=== PATIENT | female | born 1940 | race Caucasian/White ===

== ENCOUNTER 2018-01-06 15:29 | Inpatient (IN) | payer MEDICARE ==
[~2018-01-06] VITALS: Ht 152.4 cm; Wt 40.8 kg
--- NOTE | ~2018-01-06 | HP ---
PATIENT: ARTUR REES MEDICAL RECORD: [id number] ACCOUNT: [id number] LOCATION:[facility] : 41 ADMISSION DATE: 01/07/18 HISTORY AND PHYSICAL EXAMINATION HISTORY OF PRESENT ILLNESS: A 77-year-old female admitted to the Emergency Room unassigned medicine after a fall at home. Findings on x-rays and exam revealed displaced left humerus fracture. She also had a contusion to her head. No evidence of intracranial bleed. No evidence of stroke. No focal deficits. The patient lives at home. She has had frequent falls, evidence of subacute rib fracture on x-ray as well. PAST MEDICAL HISTORY: Significant for COPD. ALLERGIES: REPORTED MORPHINE AND CODEINE. CURRENT MEDICATIONS: Inhalers, supplements. REVIEW OF SYSTEMS: GENERAL: No reported change in weight or appetite. HEENT: She denies headache, but she did have a recent contusion to her head with the present fall. Denies visual changes, tinnitus, epistaxis, or dysphagia. CARDIOVASCULAR: Denies chest pain. Denies palpitations. PULMONARY: Denies hemoptysis. Denies night sweats. GASTROINTESTINAL: Denies hematemesis, hematochezia, or melena. GENITOURINARY: Admits frequency. Denies burning. MUSCULOSKELETAL: Frequent falls with a displaced left humerus fracture. PHYSICAL EXAMINATION: VITAL SIGNS: Temperature 98.1, blood pressure 154/82, heart rate 79, respirations 18, O2 sats 94%. GENERAL: Alert, oriented, presently comfortable. HEENT: Head: No cephalgia. Small hematoma on scalp. Eyes: Equally round and reactive. Ears: Canals patent. Nose: Nares patent. Throat: No erythema, no exudates. NECK: Supple. No lymphadenopathy. No JVD. No carotid bruits. HEART: Regular rate and rhythm. No S3 or S4. No rub. LUNGS: Clear to auscultation bilaterally. Mildly prolonged expiratory phase. Breathing is nonlabored. ABDOMEN: Soft, nontender. Bowel sounds all 4 quadrants. EXTREMITIES: Present times 4. Deformity, left proximal humerus. Pulses palpable. RADIOLOGIC DATA: X-ray humerus 2 views: Fracture of the proximal humerus, left and what appears to be subacute left rib fracture. Chest x-ray: No acute findings. CT of the head: Signs of small vessel disease. Left frontal scalp hematoma. No acute intracranial abnormality. LABORATORY DATA: Urinalysis: Yellow, turbid, small ketones, 1+ blood, positive for nitrites, 2+ leukocyte esterase, greater than 50 wbc's per high-powered field, many bacteria. CBC: White count 9.6, hemoglobin 12.6, hematocrit 37.2, platelets 137. PT is 12.2, INR is 0.94. Sodium 141, potassium 3.9, BUN 10, creatinine 0.6. HISTORY AND PHYSICAL [id number] ARTUR REES ASSESSMENT AND PLAN: 1. Left humerus fracture. Orthopedics consulted. Anticipated surgery soon for open reduction internal fixation. 2. Urinary tract infection. Rocephin 1 gram daily. Urine culture. 3. Chronic obstructive pulmonary disease. DuoNebs four times a day, supplemental oxygen, supportive care. 4. Frequent falls. Will need physical therapy evaluation after surgery. We will obtain EKG. Consider neurology evaluation through her primary care physician, Dr. Irene upon discharge. TRANSINT:[id number] Voice Confirmation ID: [id number] DOCUMENT ID: [id number] JEFF BROOKS DO at 0819 CC: [id number] DICTATION DATE: 01/07/18 0733 PIZZA DELIVERY: 01/07/18 0839 ADM IN [place] [id number] [place] [address]
--- NOTE | ~2018-01-06 | OP ---
PATIENT NAME: ARTUR REES MEDICAL RECORD: [id number] :42 LOCATION:[facility] ADMISSION DATE:01/07/18 SURGEON: KURTIS KUMAR MD DATE OF OPERATION: 01/08/2018 PREOPERATIVE DIAGNOSIS: Left proximal humerus fracture. POSTOPERATIVE DIAGNOSIS: Left proximal humerus fracture. PROCEDURE: Open reduction and internal fixation of left proximal humerus fracture. SURGEON: Kurtis Kumar MD ANESTHESIA: General. INTRAOPERATIVE COMPLICATIONS: Essentially none. SUMMARY OF PATHOLOGIC FINDINGS: The patient had an oblique fracture just below the humeral head. The patient had a prior proximal humerus fracture with severe varus healing making this a little more difficult than usual. OPERATIVE SUMMARY IN DETAIL: After obtaining the appropriate preoperative orthopedic surgery consent as well as anesthetic consultation, evaluation and clearance, the patient was brought to the operating room and placed on the operating table in supine position. After general laryngeal mask was administered, the patient was placed in the beach chair position. All pressure points were well padded. She was held firmly to the operating table using the vacuum pack suction system. The patient's left upper extremity and shoulder were then prepped and draped in a routine sterile fashion. The arm was held in the Trimano arm holding device. It is of note that preoperatively, this patient had multiple skin tears from her fall and sustained one single additional skin tear intraoperatively. The skin tears were treated usually and prepped around this per protocol. At this point, a deltopectoral incision was taken down to the cephalic vein, which was found to remained intact, it was protected through the entire case. Dissection was carried down, the anterior aspect just lateral to the biceps, the biceps had previously torn, the distal aspect was found to be frayed, dissection was carried down, a small portion of the deltoid was released as well as a small portion of the pectoralis major as it had binded between the fracture fragments. This was all removed along with all fracture hematoma. Fracture reduction was performed, held in place with bone clamps while the [employer] plating system was used. Serial and sequential drill and fill was done with a combination of both locking and nonlocking screws under direct fluoroscopic visualization. Having completed this, the pectoralis was repaired using #2 Ethibond. Wound was then copiously irrigated and closed with #1 Vicryl followed by 2-0 Vicryl followed by skin erick. Sterile dressings were applied. The patient was awakened, taken to recovery room in stable condition. Estimated blood loss was approximately 200 cc and again intraoperative plating system was the AxSOS 5-hole humeral plate. TRANSINT:[id number] Voice Confirmation ID: [id number] DOCUMENT ID: [id number] OPERATIVE REPORT [id number] ARTUR REES MD, KURTIS BLANCHARD at 1427 CC: [id number] DICTATION DATE: 01/08/18 1143 PRODUCT SAFETY TESTER: 01/08/18 1217 ADM IN [place] [id number] [place] [id number]
[2018-01-06 17:04] LABS: BASOPHILS 0.2 % (0-2); EOSINOPHILS 0.2 % (0-7); HEMATOCRIT 37.2 % (36.0-48.0); HEMOGLOBIN 12.6 g/dL (12-16); IMMATURE GRANULOCYTES 0.3 % (0-5); LYMPHOCYTES 10.8 % (15-50); MCH 34.9 pg (26.0-34.0); MCHC 33.9 g/dL (31.0-37.0); MEAN PLATELET VOLUME 9.6 fL (7.4-10.4); MONOCYTES 11.7 % (2-11); NEUTROPHILS 76.8 % (40-80); PLATELET COUNT 137 10x3/uL (130-400); RBC 3.61 10x6/uL (4.00-5.40); RDW 13.5 % (11.5-14.5); WBC 9.6 10x3/uL (4.8-10.8)
[2018-01-06 17:12] LABS: APTT 23.5 SECONDS (22.8-39.4); INR 0.94 (0.85-1.17); PROTIME 12.2 SECONDS (11.6-15.0)
[2018-01-06 17:17] LABS: ALBUMIN 3.3 g/dL (3.4-5.0); ALKALINE PHOSPHATASE 96 U/L (46-116); ALT (SGPT) 20 U/L (10-68); CALC OSMOLALITY 279 mosm/kg (275-300); CALCIUM 8.7 mg/dL (8.5-10.1); CARBON DIOXIDE 29.9 mmol/L (21.0-32.0); CHLORIDE - SERUM 101 mmol/L (98-107); CREATININE - SERUM 0.6 mg/dL (0.6-1.3); GLUCOSE 94 mg/dL (74-106); POTASSIUM - SERUM 3.9 mmol/L (3.5-5.1); SODIUM 141 mmol/L (136-145); UREA NITROGEN 10 mg/dL (7-18); eGFR NON AFRICAN AMERICAN > 90 mL/min (90-120)
[2018-01-06 20:11] LABS: APPEARANCE TURBID (CLEAR); BILIRUBIN NEGATIVE (NEGATIVE); COLOR YELLOW (YELLOW); GLUCOSE NEGATIVE (NEGATIVE); KETONE SMALL mg/dL (NEGATIVE); NITRITE POSITIVE (NEGATIVE); PROTEIN TRACE mg/dL (NEGATIVE); SPECIFIC GRAVITY 1.015 (1.005-1.020); UROBILINOGEN NORMAL (NORMAL)
[2018-01-06 20:13] LABS: RED CELLS - URINE 0-5 /hpf (0-5); WHITE CELLS - URINE >50 /hpf (0-5)
[2018-01-06 20:14] LABS: BACTERIA MANY /hpf (NONE SEEN)
[2018-01-06] MEDS ORDERED: SPIRIVA RESPIMAT4 G1 INH (22:01)
[2018-01-06] MEDS ORDERED: MUCINEX DM ER1 EAC1 PO (22:02)
[2018-01-06] MEDS ORDERED: CALCIUM 250+D T1 TAB PO (22:04)
[2018-01-06] MEDS ORDERED: CETIRIZINE HCL5 MG PO (22:04)
[2018-01-06] MEDS ORDERED: GLUCOSAMINE & C1 CAP PO (22:05)
[2018-01-06] MEDS ORDERED: SYMBICORT 16010.2 GM INH (22:07)
[2018-01-06] MEDS ORDERED: VENTOLIN HFA18 GM INH (22:08)
[2018-01-06] MEDS ORDERED: PROVENTIL/2.5 MG/3 M INH (22:10)
[2018-01-06] MEDS ORDERED: SINGULAIR10 MG PO (22:11)
[2018-01-06] MEDS ORDERED: GINKGO BILOBA120 MG PO (22:11)
[2018-01-06] MEDS ORDERED: NASONEX NASAL S17 GM NS (22:11)
[2018-01-06 22:38] VITALS: BP 149/83; BMI 17.6
[2018-01-06 23:10] VITALS: BP 149/83
[2018-01-07 02:43] VITALS: BP 158/83
[2018-01-07 05:13] VITALS: BP 154/82
[2018-01-07 10:02] VITALS: BP 173/82
[2018-01-07 12:39] VITALS: BP 146/77
[2018-01-07 14:23] VITALS: Ht 152.4 cm; Wt 40.8 kg
[2018-01-07 16:30] VITALS: BP 152/77
[2018-01-07 22:06] VITALS: BP 124/68
[2018-01-08 04:40] LABS: BASOPHILS 0.2 % (0-2); EOSINOPHILS 0.6 % (0-7); HEMATOCRIT 34.9 % (36.0-48.0); HEMOGLOBIN 11.7 g/dL (12-16); IMMATURE GRANULOCYTES 0.3 % (0-5); LYMPHOCYTES 10.9 % (15-50); MCH 34.4 pg (26.0-34.0); MCHC 33.5 g/dL (31.0-37.0); MCV 102.6 fL (80.0-100.0); MEAN PLATELET VOLUME 10.1 fL (7.4-10.4); MONOCYTES 12.4 % (2-11); NEUTROPHILS 75.6 % (40-80); PLATELET COUNT 144 10x3/uL (130-400); RDW 13.4 % (11.5-14.5); WBC 8.9 10x3/uL (4.8-10.8)
[2018-01-08 04:58] LABS: CALC OSMOLALITY 278 mosm/kg (275-300); CALCIUM 8.9 mg/dL (8.5-10.1); CHLORIDE - SERUM 99 mmol/L (98-107); CREATININE - SERUM 0.7 mg/dL (0.6-1.3); GLUCOSE 113 mg/dL (74-106); MAGNESIUM - SERUM 1.6 mg/dL (1.8-2.4); POTASSIUM - SERUM 3.4 mmol/L (3.5-5.1); SODIUM 139 mmol/L (136-145); eGFR NON AFRICAN AMERICAN 86 mL/min (90-120)
[2018-01-08 05:01] LABS: UREA NITROGEN 13 mg/dL (7-18)
[2018-01-08 05:40] VITALS: BP 133/94
[2018-01-08 08:21] VITALS: BP 117/76
[2018-01-08 12:14] VITALS: BP 115/80
[2018-01-08 16:59] LABS: HEMATOCRIT 31.6 % (36.0-48.0); HEMOGLOBIN 10.4 g/dL (12-16)
[2018-01-08 20:30] VITALS: BP 114/72
[2018-01-09 00:30] VITALS: BP 112/76
[2018-01-09 03:37] LABS: BASOPHILS 0.2 % (0-2); EOSINOPHILS 0.4 % (0-7); HEMATOCRIT 29.4 % (36.0-48.0); HEMOGLOBIN 9.6 g/dL (12-16); IMMATURE GRANULOCYTES 0.4 % (0-5); LYMPHOCYTES 8.4 % (15-50); MCHC 32.7 g/dL (31.0-37.0); MCV 104.3 fL (80.0-100.0); MEAN PLATELET VOLUME 10.4 fL (7.4-10.4); MONOCYTES 16.9 % (2-11); NEUTROPHILS 73.7 % (40-80); PLATELET COUNT 124 10x3/uL (130-400); RBC 2.82 10x6/uL (4.00-5.40); RDW 13.5 % (11.5-14.5); WBC 10.7 10x3/uL (4.8-10.8)
[2018-01-09 04:11] LABS: ALBUMIN 2.8 g/dL (3.4-5.0); ANION GAP 10.1 mmol/L (8-16); BILIRUBIN - TOTAL 0.36 mg/dL (0.2-1.3); CALCIUM 8.5 mg/dL (8.5-10.1); CARBON DIOXIDE 31.7 mmol/L (21.0-32.0); POTASSIUM - SERUM 4.8 mmol/L (3.5-5.1); PROTEIN - SERUM 5.7 g/dL (6.4-8.2)
[2018-01-09 04:12] LABS: CREATININE - SERUM 1.1 mg/dL (0.6-1.3)
[2018-01-09 04:30] VITALS: BP 110/69
[2018-01-09 09:14] VITALS: BP 100/68
[2018-01-09 12:23] VITALS: BP 127/71
[2018-01-09 15:33] LABS: HEMATOCRIT 22.6 % (36.0-48.0); HEMOGLOBIN 7.6 g/dL (12-16)
[2018-01-09 16:11] VITALS: BP 120/68
[2018-01-09 20:00] VITALS: BP 132/72
[2018-01-10] VITALS (13 sets, daily range): BP systolic 107–135; BP diastolic 57–81
[2018-01-10 04:00] LABS: HEMATOCRIT 21.3 % (36.0-48.0)
[2018-01-10 04:02] LABS: HEMOGLOBIN 7.1 g/dL (12-16)
[2018-01-10 12:13] LABS: BASOPHILS 0.2 % (0-2); EOSINOPHILS 0.5 % (0-7); IMMATURE GRANULOCYTES 0.7 % (0-5); LYMPHOCYTES 5.4 % (15-50); MCH 33.1 pg (26.0-34.0); MEAN PLATELET VOLUME 9.5 fL (7.4-10.4); MONOCYTES 18.5 % (2-11); NEUTROPHILS 74.7 % (40-80); PLATELET COUNT 135 10x3/uL (130-400); RBC 2.72 10x6/uL (4.00-5.40); RDW 16.4 % (11.5-14.5)
[2018-01-10 12:37] LABS: HEMATOCRIT 26.5 % (36.0-48.0); MCV 97.4 fL (80.0-100.0)
[2018-01-11 04:55] VITALS: BP 128/69
[2018-01-11 06:29] LABS: BASOPHILS 0.2 % (0-2); EOSINOPHILS 2.3 % (0-7); HEMATOCRIT 26.3 % (36.0-48.0); HEMOGLOBIN 8.8 g/dL (12-16); IMMATURE GRANULOCYTES 0.6 % (0-5); LYMPHOCYTES 9.4 % (15-50); MCH 32.7 pg (26.0-34.0); MCHC 33.5 g/dL (31.0-37.0); MCV 97.8 fL (80.0-100.0); MEAN PLATELET VOLUME 9.2 fL (7.4-10.4); MONOCYTES 21.2 % (2-11); NEUTROPHILS 66.3 % (40-80); RBC 2.69 10x6/uL (4.00-5.40)
[2018-01-11 06:31] LABS: PLATELET COUNT 167 10x3/uL (130-400); WBC 9.6 10x3/uL (4.8-10.8)
[2018-01-11 06:52] LABS: CALC OSMOLALITY 271 mosm/kg (275-300); CALCIUM 8.4 mg/dL (8.5-10.1); CARBON DIOXIDE 32.2 mmol/L (21.0-32.0); CHLORIDE - SERUM 99 mmol/L (98-107); CREATININE - SERUM 0.7 mg/dL (0.6-1.3); POTASSIUM - SERUM 3.6 mmol/L (3.5-5.1); SODIUM 137 mmol/L (136-145); UREA NITROGEN 10 mg/dL (7-18); eGFR NON AFRICAN AMERICAN 86 mL/min (90-120)
[2018-01-11 06:57] LABS: GLUCOSE 83 mg/dL (74-106)
[2018-01-11 07:34] VITALS: BP 120/60
[2018-01-11] MEDS ORDERED: CIPRO500 MG PO (08:14)
[2018-01-11] MEDS ORDERED: PERCOCET 5-3251 TAB PO (08:45)
== END 2018-01-11 12:28 | disposition home health service (06) | DRG 493 ==
LOC: D.ER 15:29 → OBSVTIME 17:54 → D.SDCHOLD 17:54 → D.MS 17:54 → D.SDCHOLD 17:54 → D.MS 20:25
PROVIDERS: Family Medicine; Orthopaedic Surgery; Physician Assistant Medical
PROC: 0PSD04Z Reposition Left Humeral Head with Internal Fixation Device, Open Approach (ICD-10-PCS; principal; 2018-01-08 09:15)
DX: S42.202A Unspecified fracture of upper end of left humerus, initial encounter for closed fracture (principal); S22.32XA Fracture of one rib, left side, initial encounter for closed fracture; N39.0 Urinary tract infection, site not specified; D62 Acute posthemorrhagic anemia; W01.0XXA Fall on same level from slipping, tripping and stumbling without subsequent striking against object, initial encounter; S00.93XA Contusion of unspecified part of head, initial encounter; J44.9 Chronic obstructive pulmonary disease, unspecified; B96.4 Proteus (mirabilis) (morganii) as the cause of diseases classified elsewhere; F17.200 Nicotine dependence, unspecified, uncomplicated

== ENCOUNTER 2018-01-21 14:02 | Inpatient (IN) | payer MEDICARE ==
[~2018-01-21] VITALS: Ht 147.3 cm; Wt 40.4 kg
--- NOTE | ~2018-01-21 | OP ---
PATIENT NAME: ARTUR REES MEDICAL RECORD: [id number] :42 LOCATION:[facility] ADMISSION DATE:01/21/18 SURGEON: KURTIS KUMAR MD DATE OF OPERATION: 01/26/2018 PREOPERATIVE DIAGNOSIS: Failed open reduction internal fixation of the left humerus. POSTOPERATIVE DIAGNOSIS: Failed open reduction internal fixation of the left humerus. PROCEDURES: 1. Removal of previously placed hardware. 2. Convert to complex reverse total shoulder arthroplasty. SURGEON: Kurtis Kumar MD ANESTHESIA: General. INTRAOPERATIVE COMPLICATIONS: None. SUMMARY OF PATHOLOGIC FINDINGS: The patient had essentially completely destroyed her internal fixation. The plate distally was attached to nothing and the proximal portion of the humerus was posterior to the humeral head. When all hardware had been removed, essentially the fragmentation connecting to the pectoralis as well as the latissimus was saved and later reapproximated by use of a [employer] cable. It is of note that this is the Segundo Ingram press-fit fracture stem segmental that was used. OPERATIVE SUMMARY IN DETAIL: After obtaining the appropriate preoperative orthopedic surgery consent as well as anesthetic consultation, evaluation, and clearance, the patient was brought to the operating room and placed on the operating table in supine position. After general laryngeal mask airway was administered, the patient was placed in beach-chair position. All pressure points were well padded. She was held firmly to the operating table using the vacuum pack suction system. Left upper extremity and shoulder were then prepped and draped in routine sterile fashion. The arm was held in the Trimano arm holding device. Immediately upon incising over the previous incision, copious hematoma was evacuated. The skin was very tenuous. The dissection was carried down to the plate. The plate was removed. Serial and sequential screw removal was then followed by cutting the proximal humerus for the reverse albeit in a neutral position as there was a rotatory instability. The first reamer was placed through the previously broken neck and carefully dissected down through to the shaft and this was connected and held connected. Good alignment was achieved. At this point, the decision made to carry on with the reverse rather than using the ball reamer. At this point, attention was turned directly to the glenoid. Circumferential labrectomy was followed by placement of the guide pin and then the reamers were used to ream the appropriate depth. Baseplate was put into place with good fit and fill, good compression and then the glenosphere was also tamped into place with Roberts taper and locked with the central screw. Attention was then returned to the proximal humerus. Sizing showed that the patient would take a size 11 distal press-fit stem, that is the distal Ingram press-fit stem with a 36 metaphysis 100 mm long 10 cm. After cleaning out the vault, essentially the tuberosities had split. The reverse was tamped into place in the appropriate version. Then the tuberosities were reapproximated OPERATIVE REPORT [id number] ARTUR REES about out the press-fit stem using combination of FiberWire in and around the stem and transosseously. This did reapproximate the reverse total shoulder to the appropriate position and a size 9 polyethylene was tamped into place. Shoulder was reduced, found to be very stable in all ranges of motion. The wound was copiously irrigated. The deltopectoral incision was then closed deeply with a few #1 Vicryls to try and decrease the hematoma gap and then the skin was closed with 2-0 Vicryl and skin erick. Sterile dressings were applied. The patient was awakened and taken to recovery room in stable condition. All final needle and sponge counts were correct. TRANSINT:[id number] Voice Confirmation ID: [id number] DOCUMENT ID: [id number] STACY ABRAHAM, KURTIS BLANCHARD at 0953 CC: [id number] DICTATION DATE: 01/30/18 1248 DENTAL SCHEDULING COORDINATOR: 01/30/182110 DIS IN 01/28/18 [facility] [address] [place] [address]
[~2018-01-21 14:02] MED LIST: CALCIUM 250+D T1 TAB PO; CETIRIZINE HCL5 MG PO; CIPRO500 MG PO; GINKGO BILOBA120 MG PO; GLUCOSAMINE & C1 CAP PO; MUCINEX DM ER1 EAC1 PO; NASONEX NASAL S17 GM NS; PERCOCET 5-3251 TAB PO; PROVENTIL/2.5 MG/3 M INH; SINGULAIR10 MG PO; SPIRIVA RESPIMAT4 G1 INH; SYMBICORT 16010.2 GM INH; VENTOLIN HFA18 GM INH
[2018-01-21] MEDS ORDERED: ZOLOFT100 MG PO (21:32)
[2018-01-21 23:15] VITALS: BP 153/88; BMI 18.7; BMI 18.8
[2018-01-22 04:00] VITALS: BP 147/81
[2018-01-22 09:19] VITALS: BP 119/71
[2018-01-22 10:50] LABS: HEMATOCRIT 30.7 % (36.0-48.0); HEMOGLOBIN 9.8 g/dL (12-16); MCH 33.4 pg (26.0-34.0); MCHC 31.9 g/dL (31.0-37.0); MCV 104.8 fL (80.0-100.0); MEAN PLATELET VOLUME 8.9 fL (7.4-10.4); RBC 2.93 10x6/uL (4.00-5.40); RDW 16.9 % (11.5-14.5); WBC 7.7 10x3/uL (4.8-10.8)
[2018-01-22 10:56] LABS: CALC OSMOLALITY 275 mosm/kg (275-300); CALCIUM 8.6 mg/dL (8.5-10.1); CARBON DIOXIDE 32.5 mmol/L (21.0-32.0); CHLORIDE - SERUM 103 mmol/L (98-107); CREATININE - SERUM 0.6 mg/dL (0.6-1.3); GLUCOSE 82 mg/dL (74-106); POTASSIUM - SERUM 3.7 mmol/L (3.5-5.1); SODIUM 139 mmol/L (136-145); UREA NITROGEN 9 mg/dL (7-18); eGFR NON AFRICAN AMERICAN > 90 mL/min (90-120)
[2018-01-22 12:45] VITALS: BP 129/72
[2018-01-22 14:45] VITALS: BP 170/89
[2018-01-22 17:39] LABS: APPEARANCE CLEAR (CLEAR); BILIRUBIN NEGATIVE (NEGATIVE); COLOR YELLOW (YELLOW); GLUCOSE NEGATIVE (NEGATIVE); KETONE NEGATIVE (NEGATIVE); NITRITE NEGATIVE (NEGATIVE); PROTEIN NEGATIVE (NEGATIVE); UROBILINOGEN NORMAL (NORMAL)
[2018-01-22 17:45] LABS: EPITHELIAL CELLS OCC /hpf (0-5); RED CELLS - URINE RARE /hpf (0-5); WHITE CELLS - URINE 0-5 /hpf (0-5)
[2018-01-22 17:46] LABS: AMORPHOUS SEDIMENT >1+ /lpf (NONE SEEN); BACTERIA MODERATE /hpf (NONE SEEN); HYALINE CAST RARE /lpf (NONE SEEN); MUCUS <1+ /lpf (NONE SEEN)
[2018-01-22 21:18] VITALS: BP 154/82
[2018-01-23 04:00] VITALS: BP 136/82
[2018-01-23 08:33] VITALS: BP 136/70
[2018-01-23 12:36] VITALS: BP 140/81
[2018-01-23 17:01] VITALS: BP 149/74
[2018-01-23 21:21] VITALS: BP 139/91
[2018-01-24 01:15] VITALS: BP 148/84
[2018-01-24 04:38] VITALS: BP 148/70
[2018-01-24 08:02] VITALS: BP 143/75
[2018-01-24 11:23] VITALS: BP 145/83
[2018-01-24 16:06] VITALS: BP 137/72
[2018-01-24 21:14] VITALS: BP 123/69
[2018-01-25 04:23] LABS: BASOPHILS 0.4 % (0-2); EOSINOPHILS 2.6 % (0-7); HEMATOCRIT 30.9 % (36.0-48.0); HEMOGLOBIN 9.8 g/dL (12-16); IMMATURE GRANULOCYTES 0.2 % (0-5); LYMPHOCYTES 10.8 % (15-50); MCH 33.7 pg (26.0-34.0); MCHC 31.7 g/dL (31.0-37.0); MCV 106.2 fL (80.0-100.0); MEAN PLATELET VOLUME 9.1 fL (7.4-10.4); MONOCYTES 13.4 % (2-11); NEUTROPHILS 72.6 % (40-80); RBC 2.91 10x6/uL (4.00-5.40); RDW 16.3 % (11.5-14.5); WBC 5.5 10x3/uL (4.8-10.8)
[2018-01-25 04:34] LABS: PLATELET COUNT 220 10x3/uL (130-400)
[2018-01-25 04:39] LABS: ALBUMIN 2.3 g/dL (3.4-5.0); ALKALINE PHOSPHATASE 133 U/L (46-116); ALT (SGPT) 13 U/L (10-68); CALC OSMOLALITY 281 mosm/kg (275-300); CALCIUM 7.6 mg/dL (8.5-10.1); CARBON DIOXIDE 28.5 mmol/L (21.0-32.0); CREATININE - SERUM 0.5 mg/dL (0.6-1.3); GLUCOSE 94 mg/dL (74-106); MAGNESIUM - SERUM 1.4 mg/dL (1.8-2.4); PROTEIN - SERUM 5.7 g/dL (6.4-8.2); SODIUM 143 mmol/L (136-145); UREA NITROGEN 5 mg/dL (7-18); eGFR NON AFRICAN AMERICAN > 90 mL/min (90-120)
[2018-01-25 04:46] LABS: CHLORIDE - SERUM 106 mmol/L (98-107)
[2018-01-25 04:58] LABS: POTASSIUM - SERUM 2.8 mmol/L (3.5-5.1)
[2018-01-25 05:55] VITALS: BP 134/95
[2018-01-25 09:18] VITALS: BP 145/77
[2018-01-25 12:47] VITALS: Ht 147.3 cm; Wt 40.4 kg
[2018-01-25 13:06] VITALS: BP 108/54
[2018-01-25 16:35] VITALS: BP 114/64
[2018-01-25 21:30] VITALS: BP 121/61
[2018-01-26] VITALS (7 sets, daily range): BP systolic 100–144; BP diastolic 61–88
[2018-01-26 04:45] LABS: BASOPHILS 0.3 % (0-2); EOSINOPHILS 4.5 % (0-7); HEMATOCRIT 30.5 % (36.0-48.0); HEMOGLOBIN 9.8 g/dL (12-16); IMMATURE GRANULOCYTES 0.2 % (0-5); MCHC 32.1 g/dL (31.0-37.0); MCV 105.9 fL (80.0-100.0); MEAN PLATELET VOLUME 9.7 fL (7.4-10.4); MONOCYTES 14.3 % (2-11); NEUTROPHILS 68.7 % (40-80); PLATELET COUNT 212 10x3/uL (130-400); RBC 2.88 10x6/uL (4.00-5.40); RDW 16.5 % (11.5-14.5)
[2018-01-26 04:50] LABS: CALC OSMOLALITY 277 mosm/kg (275-300); CALCIUM 8.9 mg/dL (8.5-10.1); CARBON DIOXIDE 29.6 mmol/L (21.0-32.0); CHLORIDE - SERUM 107 mmol/L (98-107); CREATININE - SERUM 0.5 mg/dL (0.6-1.3); GLUCOSE 96 mg/dL (74-106); SODIUM 141 mmol/L (136-145); UREA NITROGEN 4 mg/dL (7-18); eGFR NON AFRICAN AMERICAN > 90 mL/min (90-120)
[2018-01-26 04:54] LABS: POTASSIUM - SERUM 3.3 mmol/L (3.5-5.1)
[2018-01-27 01:11] VITALS: BP 93/56
[2018-01-27 04:09] LABS: BASOPHILS 0.1 % (0-2); EOSINOPHILS 0 % (0-7); HEMATOCRIT 24.7 % (36.0-48.0); HEMOGLOBIN 7.9 g/dL (12-16); IMMATURE GRANULOCYTES 0.2 % (0-5); LYMPHOCYTES 2.9 % (15-50); MCH 33.9 pg (26.0-34.0); MEAN PLATELET VOLUME 9.3 fL (7.4-10.4); MONOCYTES 11.6 % (2-11); NEUTROPHILS 85.2 % (40-80); PLATELET COUNT 223 10x3/uL (130-400); RBC 2.33 10x6/uL (4.00-5.40); RDW 16.1 % (11.5-14.5)
[2018-01-27 04:10] LABS: WBC 12.9 10x3/uL (4.8-10.8)
[2018-01-27 04:21] LABS: CALCIUM 8.2 mg/dL (8.5-10.1); CARBON DIOXIDE 25.8 mmol/L (21.0-32.0)
[2018-01-27 04:22] LABS: POTASSIUM - SERUM 4.8 mmol/L (3.5-5.1)
[2018-01-28] MEDS ORDERED: ULTRAM50 MG PO (08:27)
[2018-01-28 08:50] LABS: BASOPHILS 0.2 % (0-2); EOSINOPHILS 0.7 % (0-7); HEMATOCRIT 27.2 % (36.0-48.0); HEMOGLOBIN 8.7 g/dL (12-16); IMMATURE GRANULOCYTES 0.4 % (0-5); LYMPHOCYTES 4.3 % (15-50); MCH 31.3 pg (26.0-34.0); MONOCYTES 16.5 % (2-11); NEUTROPHILS 77.9 % (40-80); RBC 2.78 10x6/uL (4.00-5.40); RDW 23.8 % (11.5-14.5); WBC 10.8 10x3/uL (4.8-10.8)
[2018-01-28 08:53] LABS: MCV 97.8 fL (80.0-100.0); PLATELET COUNT 178 10x3/uL (130-400)
[2018-01-28 12:49] VITALS: BP 143/74
== END 2018-01-28 14:46 | disposition home health service (06) | DRG 483 ==
LOC: D.ER 14:02 → D.MS 18:30
PROVIDERS: Orthopaedic Surgery
PROC: 0PPD04Z Removal of Internal Fixation Device from Left Humeral Head, Open Approach (ICD-10-PCS; 2018-01-26)
PROC: 0RRK00Z Replacement of Left Shoulder Joint with Reverse Ball and Socket Synthetic Substitute, Open Approach (ICD-10-PCS; principal; 2018-01-26 07:30)
DX: S42.202A Unspecified fracture of upper end of left humerus, initial encounter for closed fracture (principal); N39.0 Urinary tract infection, site not specified; D62 Acute posthemorrhagic anemia; W19.XXXA Unspecified fall, initial encounter; J44.9 Chronic obstructive pulmonary disease, unspecified; E87.6 Hypokalemia

== ENCOUNTER 2018-02-04 14:55 | Emergency (ER) | payer MEDICARE ==
[2018-01-25 12:47] VITALS: BMI 18.7
[~2018-02-04 14:55] MED LIST changes: +ULTRAM50 MG PO; +ZOLOFT100 MG PO
== END 2018-02-04 18:08 | disposition home or self-care (01) ==
LOC: D.ER 14:55
DX: L03.114 Cellulitis of left upper limb (principal); M25.512 Pain in left shoulder; J44.9 Chronic obstructive pulmonary disease, unspecified

== ENCOUNTER 2018-03-07 12:49 | Inpatient (IN) | payer MEDICARE ==
[~2018-03-07] VITALS: Ht 147.3 cm; Wt 38.6 kg
--- NOTE | ~2018-03-07 | OP ---
PATIENT NAME: ARTUR REES MEDICAL RECORD: [id number] :42 LOCATION:[facility] ADMISSION DATE:03/07/18 SURGEON: KURTIS KUMAR MD DATE OF OPERATION: 03/07/2018 PREOPERATIVE DIAGNOSIS: Acute dislocation of reverse total shoulder on the left. POSTOPERATIVE DIAGNOSIS: Acute dislocation of reverse total shoulder on the left. PROCEDURE: Revision of left reverse total shoulder arthroplasty. SURGEON: Kurtis Kumar MD ANESTHESIA: General. INTRAOPERATIVE COMPLICATIONS: None. SUMMARY OF PATHOLOGIC FINDINGS: Bone fragments had pulled from behind the patient's tuberosity repair into the joint itself and caused dislocation of the stem. The components needed revision mostly to be able to work in the space. OPERATIVE SUMMARY IN DETAIL: After obtaining the appropriate preoperative orthopedic surgery consent as well as anesthetic consultation, evaluation, and clearance, the patient was brought to the operating room and placed on the operating table in supine position. After general laryngeal mask airway was administered, the patient was placed in the beach chair position. All pressure points were well padded. She was held firmly to the operating table using the vacuum pack suction system. Attempts were first made at closed reduction; however, this was completely fruitless as it did not move at all. After the left upper extremity was prepped and draped in routine sterile fashion, an incision was made down the previous incision line and the prosthesis was immediately seen. Care was taken to dissection in and around and preserve the deltoids as well as the conjoined tendon. At this point, the polyethylene of the reverse was removed followed by removal of the metaphyseal component of the Segundo Ingram style revision stem. The interposed bone was removed in its entirety. Unfortunately that left very little of any of the rotator cuff mechanism. Copious irrigation was then followed by reassembly of the proximal aspect of the reverse total shoulder system and it was trialed with a size 6 polyethylene wear as it did have a 9, size 6 fit snugly. The size 6 polyethylene was snapped into place and reduced, very stable at this point. Radiographs were taken and sent to radiology for final review. The wound was copiously irrigated and closed with #1 Vicryl followed by 2-0 Vicryl followed by skin erick. Sterile dressings were applied. The patient was awakened and taken to recovery room in stable condition. All final needle and sponge counts were correct. TRANSINT:[id number] Voice Confirmation ID: [id number] DOCUMENT ID: [id number] OPERATIVE REPORT [id number] ARTUR REES MD, KURTIS BLANCHARD at 1341 CC: [id number] DICTATION DATE: 03/14/182302 GLASS INSERTER: 03/15/18 0945 DIS IN 03/09/18 [place] [id number] [place] [id number]
[2018-03-07 13:25] VITALS: BP 145/81; BMI 17.8
[2018-03-07 13:39] LABS: HEMOGLOBIN 11.1 g/dL (12-16); MCH 32.1 pg (26.0-34.0); MCHC 31.7 g/dL (31.0-37.0); MCV 101.2 fL (80.0-100.0); MEAN PLATELET VOLUME 9.1 fL (7.4-10.4); RBC 3.46 10x6/uL (4.00-5.40); RDW 16.6 % (11.5-14.5); WBC 9.9 10x3/uL (4.8-10.8)
[2018-03-07 21:00] VITALS: BP 129/79
[2018-03-07 21:37] VITALS: BP 101/97; BMI 17.8
[2018-03-07 22:00] VITALS: BP 146/79
[2018-03-07 23:00] VITALS: BP 135/76
[2018-03-08] VITALS (9 sets, daily range): BP systolic 105–144; BP diastolic 41–74; Ht 147.3 cm; Wt 38.6 kg
[2018-03-08 04:33] LABS: HEMATOCRIT 30.2 % (36.0-48.0); HEMOGLOBIN 9.6 g/dL (12-16); MCH 32.7 pg (26.0-34.0); MCHC 31.8 g/dL (31.0-37.0); MCV 102.7 fL (80.0-100.0); MEAN PLATELET VOLUME 9.8 fL (7.4-10.4); RBC 2.94 10x6/uL (4.00-5.40); RDW 16.3 % (11.5-14.5)
[2018-03-09 00:04] VITALS: BP 112/48
[2018-03-09 04:26] VITALS: BP 124/54
[2018-03-09 06:27] LABS: HEMATOCRIT 27.7 % (36.0-48.0); HEMOGLOBIN 8.8 g/dL (12-16); MCH 32.1 pg (26.0-34.0); MCHC 31.8 g/dL (31.0-37.0); MCV 101.1 fL (80.0-100.0); MEAN PLATELET VOLUME 9.8 fL (7.4-10.4); RBC 2.74 10x6/uL (4.00-5.40); WBC 7.8 10x3/uL (4.8-10.8)
[2018-03-09 08:06] VITALS: BP 137/65
== END 2018-03-09 14:20 | disposition home health service (06) | DRG 483 ==
LOC: D.OPS 12:49 → D.PAN 14:00 → D.ICU 20:14 → D.OPS 23:51 → D.ICU 23:53 → D.MS 03-08 15:28
PROVIDERS: Anesthesiology; Orthopaedic Surgery
PROC: 0RPK0JZ Removal of Synthetic Substitute from Left Shoulder Joint, Open Approach (ICD-10-PCS; 2018-03-07)
PROC: 0PSD04Z Reposition Left Humeral Head with Internal Fixation Device, Open Approach (ICD-10-PCS; principal; 2018-03-07 15:35)
PROC: 0RRK00Z Replacement of Left Shoulder Joint with Reverse Ball and Socket Synthetic Substitute, Open Approach (ICD-10-PCS; 2018-03-07 15:35)
DX: M97.32XA Periprosthetic fracture around internal prosthetic left shoulder joint, initial encounter (principal); S42.212A Unspecified displaced fracture of surgical neck of left humerus, initial encounter for closed fracture; X58.XXXA Exposure to other specified factors, initial encounter; J44.9 Chronic obstructive pulmonary disease, unspecified; Z87.891 Personal history of nicotine dependence; F41.9 Anxiety disorder, unspecified; M81.0 Age-related osteoporosis without current pathological fracture; Z96.612 Presence of left artificial shoulder joint

== ENCOUNTER → 2018-05-16 14:07 | Outpatient (CLI) | payer MEDICARE ==
[2018-03-08 09:10] VITALS: BMI 17.7
[~2018-05-16 14:07] MED LIST changes: +HYDROCODONE-APA1 TAB PO
== END | disposition home or self-care (01) ==
LOC: D.LABREF 14:07
DX: L02.414 Cutaneous abscess of left upper limb (principal)

== ENCOUNTER → 2018-07-27 19:10 | Outpatient (CLI) | payer MEDICARE ==
[2018-03-08 09:10] VITALS: BMI 17.7
== END | disposition home or self-care (01) ==
LOC: D.LABREF 19:10
DX: S41.102A Unspecified open wound of left upper arm, initial encounter (principal)